=== PATIENT | male | born 1990 | race Caucasian/White ===

== ENCOUNTER 2017-10-11 01:49 | Emergency (ER) | payer MEDICAID ==
[~2017-10-11] VITALS: Ht 185.4 cm; Wt 159.0 kg
[~2017-10-11 01:49] MED LIST: CARB100T7 PO; HYDR-569 PO; ONDA4TAB59 PO; OXYC-658 PO; SUMA50TA PO; TRAM50TA2 PO; [UNRECOGNIZED DRUG - CODE] PO
[2017-10-11] MEDS ORDERED: LORazepam 1 MG tablet PO ONE (02:00)
[2017-10-11 02:25] VITALS: BP 161/95
[2017-10-11] MEDS ORDERED: LORA-269 PO (02:38)
== END 2017-10-11 02:58 | disposition home or self-care (01) ==
LOC: ER 01:50
DX: F41.9 Anxiety disorder, unspecified (principal); R07.89 Other chest pain; F12.10 Cannabis abuse, uncomplicated; F17.210 Nicotine dependence, cigarettes, uncomplicated; G89.29 Other chronic pain; M19.90 Unspecified osteoarthritis, unspecified site; Z98.890 Other specified postprocedural states
CPT/HCPCS: 71045; 93005; 99284

== ENCOUNTER 2019-04-01 11:24 | Emergency (ER) | payer MEDICAID ==
[~2019-04-01] VITALS: Ht 304.8 cm; Wt 142.0 kg
[~2019-04-01 11:24] MED LIST changes: +CLIN-90 PO; +HYDR-4383 PO; -HYDR-569 PO; +LORA-269 PO
[2019-04-01 11:31] VITALS: BP 114/75
[2019-04-01] MEDS ORDERED: PENI500T2 PO (12:18)
== END 2019-04-01 13:19 | disposition home or self-care (01) ==
LOC: ER 11:25
DX: K08.89 Other specified disorders of teeth and supporting structures (principal); M19.90 Unspecified osteoarthritis, unspecified site; G89.29 Other chronic pain; M79.7 Fibromyalgia; F12.90 Cannabis use, unspecified, uncomplicated; Z98.890 Other specified postprocedural states
CPT/HCPCS: 99283

== ENCOUNTER 2019-07-10 13:25 | Emergency (ER) | payer MEDICAID ==
[~2019-07-10] VITALS: Ht 182.9 cm; Wt 136.4 kg
[2019-07-10 13:30] VITALS: BP 125/95
[2019-07-10] MEDS ORDERED: ketorolac trometh inj. 60 MG/2 ML VIAL IM ONE (14:20)
== END 2019-07-10 14:27 | disposition home or self-care (01) ==
LOC: ER 13:25
DX: J06.9 Acute upper respiratory infection, unspecified (principal); M19.90 Unspecified osteoarthritis, unspecified site; G89.29 Other chronic pain; M79.7 Fibromyalgia; F12.90 Cannabis use, unspecified, uncomplicated; F17.210 Nicotine dependence, cigarettes, uncomplicated; Z98.890 Other specified postprocedural states
CPT/HCPCS: 99281; J1885

== ENCOUNTER 2019-11-10 18:51 | Emergency (ER) | payer MEDICAID ==
[~2019-11-10] VITALS: Ht 177.8 cm; Wt 140.3 kg
[~2019-11-10 18:51] MED LIST changes: -CLIN-90 PO; +CLIN-97 PO
[2019-11-10 19:52] VITALS: BP 150/79
--- NOTE | 2019-11-10 20:06 | NUR ---
pt provided urine sample. pt is polite and cooperative with all care current vss. states cp is constant , substernal and non radiating currently and is 7 otu of 10. states his mother is in the parking lot waiting for him.
[2019-11-10 20:20] LABS: URINE AMPHETAMINE SCREEN POSITIVE (Neg); URINE BARBITUATE SCREEN NEGATIVE (Neg); URINE BENZODIAZEPINES SCREEN NEGATIVE (Neg); URINE CANNABINOID SCREEN POSITIVE (Neg); URINE COCAINE SCREEN NEGATIVE (Neg); URINE METHADONE SCREEN NEGATIVE (Neg); URINE OPIATE SCREEN POSITIVE (Neg); URINE PHENCYCLIDINE SCREEN NEGATIVE (Neg)
== END 2019-11-10 20:33 | disposition home or self-care (01) ==
LOC: ER 18:52
DX: R07.89 Other chest pain (principal); M19.90 Unspecified osteoarthritis, unspecified site; G89.29 Other chronic pain; F12.90 Cannabis use, unspecified, uncomplicated; F17.200 Nicotine dependence, unspecified, uncomplicated; M79.7 Fibromyalgia; F11.90 Opioid use, unspecified, uncomplicated; Z98.890 Other specified postprocedural states
CPT/HCPCS: 71045; 80305; 93005; 99285

== ENCOUNTER 2019-12-16 14:07 | Emergency (ER) | payer MEDICAID ==
[~2019-12-16] VITALS: Ht 177.8 cm; Wt 136.2 kg
[2019-12-16 14:24] VITALS: BP 119/69
--- NOTE | 2019-12-16 15:43 | NUR ---
PT CALLED TO ER X3, LWOBS. NO FURTHER ACTION PER PROVIDER
== END 2019-12-16 15:43 | disposition left against medical advice (07) ==
LOC: ER 14:08
DX: H92.09 Otalgia, unspecified ear (principal); K08.89 Other specified disorders of teeth and supporting structures; Z53.21 Procedure and treatment not carried out due to patient leaving prior to being seen by health care provider

== ENCOUNTER 2020-04-29 19:24 | Emergency (ER) | payer MEDICAID ==
[~2020-04-29] VITALS: Ht 180.3 cm; Wt 132.1 kg
[2020-04-29 19:29] VITALS: BP 158/87
[2020-04-29] MEDS ORDERED: ibuprofen tablet 400 MG TABLET PO ONE (21:05)
[2020-04-29] MEDS ORDERED: IBUP-1985 PO (21:35)
== END 2020-04-29 21:47 | disposition home or self-care (01) ==
LOC: ER 19:25
DX: S62.667A Nondisplaced fracture of distal phalanx of left little finger, initial encounter for closed fracture (principal); M79.645 Pain in left finger(s); M19.90 Unspecified osteoarthritis, unspecified site; G89.29 Other chronic pain; F17.200 Nicotine dependence, unspecified, uncomplicated; F19.90 Other psychoactive substance use, unspecified, uncomplicated; Z79.2 Long term (current) use of antibiotics; Z79.899 Other long term (current) drug therapy; Z98.890 Other specified postprocedural states; W20.8XXA Other cause of strike by thrown, projected or falling object, initial encounter; Y93.89 Activity, other specified; Y92.89 Other specified places as the place of occurrence of the external cause; Y99.8 Other external cause status
CPT/HCPCS: 29130; 73130; 99284